=== PATIENT | female | born 2000 | race Hispanic/Latino ===

== ENCOUNTER 2019-01-10 13:43 | Day surgery (SDC) | payer OTHER ==
[2019-01-10 15:01] VITALS: BP 106/65; TEMP 99.1
[2019-01-10 15:02] VITALS: BMI 29.4
--- NOTE | 2019-01-10 15:21 | PDOC.FPROB ---
FMR OB H&P: HPI - History of Present Illness Chief Complaint: Contractions Indentification: History of Present Illness: Pt is a at 38 6/7 weeks, TC 01/18/19, dated by LMP c/w 9.4 week sono who presents with contractions q 4 mins. She states she started feeling contractions at 0200 spaced at 10 mins. Contractions did not remit becomeing q4mins. Painful contractions, 7/10. She denies ROM, bleeding. Her previous was 6 years ago and resulted in a vertical secondary to her age. She would prefer a . Pt is rubella non-immune, varicella non-immune, GBS negative. She has no other pertinent history. 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 - Surgical History Sx History: None - Social History Social History: Denies alcohol, tobacco, drugs - Family History Family History: non-contributory FMR OB H&P: Medications - Current Home Medications: Medication Instructions Recorded Confirmed Type Iron Fum,Ps/Folic/Bcomp,C No.9 1 cap PO DAILY 01/10/19 01/11/19 History [Folivane-Plus] Allergies/Adverse Reactions: Allergies Allergy/AdvReac Type Severity Reaction Status Date / Time No Known Drug Allergies Allergy Verified 01/11/19 00:39 FMR OB H&P: ROS - Review of Systems General: denies: fever/chills, weight/appetite/sleep changes Eyes: denies: eye pain, vision changes ENT: denies: nasal congestion, rhinorrhea Cardiovascular: denies: chest pain, palpitation, edema Respiratory: denies: cough, congestion, shortness of breath Gastrointestinal: denies: abdominal pain, indigestion Genitourinary (Female): denies: incontinence, dysuria, hematuria Musculoskeletal: denies: pain, stiffness Neurologic: denies: numbness, syncope Integumentary: denies: itching, rash FMR OB H&P: Vital Signs - Maternal Vital signs: Vital Signs - First Documented Temp Pulse Resp BP 99.1 F 73 18 106/65 01/10/19 14:16 01/10/19 14:16 01/10/19 14:16 01/10/19 14:16 - Heart Tones Baseline: 140 Variability: moderate Category: category 1 FMR OB H&P: Physical Exam - Physical Exam General: NAD, awake, alert and oriented Neck: supple, FROM, trachea midline Chest: non-tender to palpation Heart: RRR, normal S1/S2, no murmurs/rubs/gallops, no edema General: CTAB, no respiratory distress, good air movement, no wheezing Abdomen: soft, gravid, non-tender Musculoskeletal: pulses present Neurological: cranial nerves II through XII intact, sensation to pain,touch and proprioception grossly normal Skin: no rash, good tugor Lymphatic: no purpura, no petechia Psychiatric: good judgement and insight, normal mood and affect - Pelvic Exam SVE: %/-2 Membranes: Intact FMR OB H&P: A/P - Problem List (1) (vaginal after ) Status: Acute Code(s): O34.219 - MATERNAL CARE FOR UNSP TYPE SCAR FROM PREVIOUS DEL Disposition: Pt is a at 38.6 weeks dated by LMP c/w 9.4 week sono who presents with contractions q4mins # Latent Labor # Hx of Vertical Incision C/S /-2, contractions q4 mins, painful, membranes intact, Cat 1 strip - monitor progression for 2 hours checking for progression of labor. If pt does not progress and is still emiliano once every 10 mins or less will keep pt and observe due to pt's history c/s. If pt progresses will keep pt for labor. - encourage PO fluid intake. # GBS Negative Discussion: Date/Time: 01/10/19 374 This H&P was discussed with [] and [] who agree with the above documentation and plan. Addendum - Attending - Attending Attestation Date/Time: 01/11/19 4787 I personally evaluated the patient and discussed the management with Dr. Trujillo I agree with the History, Examination, Assessment and Plan documented above with any addition or exceptions noted below. In summary, patient is a 18 yo at 38.6 wk dated by LMP/9.4wk sono. She presented with CTx that had been progressively worsening and becoming more frequent since 0200 on the date of service. Her prior c/s occurred in [place] and was scheduled due to her age (12 yo) and concern for large per the patient. Her course has been unremarkable and she has had adequate follow up. Plan to PO and IV hydrate. Reassess for progression of labor. Plan discussed with patient and patient's spouse who expressed understanding.
[2019-01-10] MEDS ORDERED: Lactated Ringer's 1,000 ML IV SCH (17:00)
[2019-01-10] MEDS ORDERED: Butorphanol Tartrate 1 MG/ML VIAL SLOW IVP SCH (17:15)
--- NOTE | 2019-01-10 19:32 | PDOC.EVN ---
Event Note - Event Note Event Note: Pt's ctx decreased in frequency post IVF's. No change in cervix. Membranes still intact. Counseled pt on returning to L&D if frequency of ctx increase to less than Q10, are great in intensity/pain, is she has any vaginal bleeding, or loss of lfuids. Pt understands and agrees with the plan to return home until further along. ATTENDING ADDENDUM: Care discussed with Dr. Estevez and agree with plan and documentation. Patient again counseled on R/B/A of TOLAC. Vending Machine Repairer was used.
== END 2019-01-10 21:10 | disposition home or self-care (01) ==
LOC: L&D/OP 13:43
PROVIDERS: ATTEND Obstetrics & Gynecology
DX: O09.893 Supervision of other high risk pregnancies, third trimester (principal); O34.212 Maternal care for vertical scar from previous cesarean delivery; Z3A.38 38 weeks gestation of pregnancy

== ENCOUNTER 2019-01-10 23:50 | Inpatient (IN) | payer MEDICAID, OTHER, SELFPAY ==
[~2019-01-10 23:50] MED LIST: Bupivacaine HCl 0.25%/Epi 0.0005/PF 10 ML VIAL FS ONE
[2019-01-11] MEDS ORDERED: hydrALAZINE 20 MG/ML VIAL SLOW IVP PRN ×3 (00:23→09:23)
[2019-01-11] MEDS ORDERED: NS / Oxytocin 40 units/1000ml 1,000 ML IV PRN (00:23)
[2019-01-11] MEDS ORDERED: Lidocaine 1% (PF) 30 ML VIAL SC PRN (00:23)
--- NOTE | 2019-01-11 00:25 | PDOC.FPROB ---
FMR OB H&P: HPI - History of Present Illness Chief Complaint: contractions 4 min apart History of Present Illness: Pt is a at 39 weeks, TC 01/18/19, dated by LMP c/w 9.4 week sono who presents with contractions q 4 mins starting at 2100 01/10. 10/10 painful contractions. She denies LOF, vag bleeding, vag discharge. Feels movements. Pt came in yesterday afternoon and was sent home as her cervix did not show any change while being observed in L&D. She states she started feeling contractions at 0200 yesterday spaced at 10 mins. Contractions did not remit becomeing q4mins. Painful contractions, 7/10 at that time. Her previous was 6 years ago and resulted in a vertical secondary to her age. She would prefer a . Pt is rubella non-immune, varicella non-immune, GBS negative. She has no other pertinent history. Primary Care Physician: RONALDO uTbbs FMR OB H&P: Current - Care : 2 Para: 1 Gestational age: 39 Due date: 01/18/19 Dating Criteria: LMP confirmed with 9.4 wk sono - OB Labs Blood type: A RH: positive Antibody Screen: negative HIV: negative RPR: negative Rubella: non-immune GBS: negative FMR OB H&P: History - Past Medical History PMH: no known medical problems - OB History OB History: @ age 12, Vertical skin incision . 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 - Surgical History Sx History: c- section age 12 - Social History Social History: Denies alcohol, tobacco, drugs - Family History Family History: non-contributory FMR OB H&P: Medications - Current Home Medications: Medication Instructions Recorded Confirmed Type Iron Fum,Ps/Folic/Bcomp,C No.9 1 cap PO DAILY 01/10/19 01/11/19 History [Folivane-Plus] Allergies/Adverse Reactions: Allergies Allergy/AdvReac Type Severity Reaction Status Date / Time No Known Drug Allergies Allergy Verified 01/11/19 00:39 FMR OB H&P: ROS - Review of Systems General: denies: fever/chills, night sweats Eyes: denies: eye pain, vision changes ENT: denies: nasal congestion, rhinorrhea Cardiovascular: denies: chest pain, palpitation, edema Respiratory: denies: cough, congestion, shortness of breath Gastrointestinal: denies: abdominal pain, indigestion Genitourinary (Female): reports: contractions. denies: incontinence, vaginal pain, vaginal bleeding Musculoskeletal: denies: stiffness, tenderness, swelling Neurologic: denies: seizures, weakness Integumentary: denies: itching, rash Hematologic/Lymphatic: denies: prolonged or excessive bleeding Psychological: denies: depression, anxiety FMR OB H&P: Vital Signs - Maternal Vital signs: BP 110/72, HR 83, Temp 98.0, O2 sat 99% RA, RR 16 - Heart Tones Baseline: 140 Variability: moderate Acceleration: present Deceleration: absent Category: category 1 [place] contractions every: 3-4 min FMR OB H&P: Physical Exam - Physical Exam General: NAD, awake, alert and oriented HEENT: normocephalic and atraumatic, PERRLA, EOMI, MMM, conjunctiva clear, no scleral icterus, grossly normal vision, grossly normal hearing, oropharynx clear , good dention Neck: supple, FROM, trachea midline, no LAD, no JVD Chest: non-tender to palpation, no lesions Heart: RRR, normal S1/S2, no murmurs/rubs/gallops, pulses present, no edema General: CTAB, no respiratory distress, good air movement, no rales/rhonchi, no wheezing, no retractions Abdomen: soft, gravid, non-tender, bowel sound present, no masses, no hernias Musculoskeletal: normal gait and station, pulses present, FROM in all four extremities, no misalignment/asymmetry, no atrophy Neurological: cranial nerves II through XII intact, sensation to pain,touch and proprioception grossly normal, no clonus, no tremor, no focal deficit Skin: no rash, good tugor, capillary refill <2 seconds, no jaundice Lymphatic: no unusual bruising or bleeding, no purpura, no petechia, no LAD Psychiatric: intact recent and remote memory, good judgement and insight, normal mood and affect - Pelvic Exam SVE: /-1 Membranes: intact Presentation: cephalic FMR OB H&P: A/P - Problem List (1) Normal labor and delivery Current Visit: Yes Status: Acute Code(s): O80 - ENCOUNTER FOR FULL-TERM UNCOMPLICATED DELIVERY (2) (vaginal after ) Current Visit: No Status: Acute Code(s): O34.219 - MATERNAL CARE FOR UNSP TYPE SCAR FROM PREVIOUS DEL Discussion: Date/Time: 01/11/1926 18 y/o @ 39 weeks, dated by LMP confirmed with 9.4 wk sono, presents to L& D with contractions with increased frequency and intensity. 1. Term IUP - 39 weeks gestation - SVE 00:30, /-1 - Recheck in 4 hours - Pt wants epidural for pain management. Consulted Anesthesia - Continuous monitoring - FHT: 140 baseline, Cat 1 strip: mod variability, no decels, few acels. - Ctx Q3-4 min - GBS negative 2. TOLAC - Pt's first delivery was at age 12 via in [place] for "small pelvis and large size." - Monitor pt closely This H&P was discussed with Dr. Samson and Dr. Tubbs who agree with the above documentation and plan. Addendum - Attending - Attending Attestation Date/Time: 01/11/19919 I personally evaluated the patient and discussed the management with Dr. Vargas I agree with the History, Examination, Assessment and Plan documented above with any addition or exceptions noted below. Patient admitted after returning to hospital with noted cervical change. Desires . Augmentation as indicated. Reassess in 3-4 hours. Epidural for pain. Case proctored by Dr. Ata Burnett who was in agreement with the management of the patient unless otherwise stated in his documentation.
[2019-01-11] MEDS ORDERED: Promethazine HCl 25 MG/ML VIAL IM PRN ×2 (00:37→01:59)
[2019-01-11] MEDS ORDERED: Ondansetron PF 4 MG/2 ML Vial IVP PRN ×2 (00:37→01:59)
[2019-01-11 00:38] VITALS: BMI 26.5
[2019-01-11] MEDS: Lactated Ringer's 1,000 ML IV SCH ×3 (00:50→05:37)
[2019-01-11] MEDS ORDERED: Fentanyl 4 mcg/Bup 0.1% Cadd 100 ML ONE (00:50)
[2019-01-11 01:06] LABS: Hemoglobin 13.5 g/dL (12.0-16.0); Mean Corpuscular HGB CONC 34.1 g/dL (32.0-36.0); Mean Corpuscular Hemoglobin 26.3 pg (25.0-35.0); Mean Platelet Volume 8.8 fL (7.4-10.4); Platelet Count 254 thou/uL (130-400); RBC Distribution Width 19.3 % (11.5-14.5); Red Blood Cell (RBC) Count 5.13 mill/uL (4.00-5.20); White Blood Cell (WBC) Count 13.1 thou/uL (4.8-10.8)
[2019-01-11 01:45] LABS: HBSAg Index 0.34 S/CO (0-0.99); Hep B Surf Ag Non-Reactive S/CO (NonReactive)
[2019-01-11] MEDS ORDERED: ePHEDrine/0.9% NaCl/PF SYRINGE 50 mg/10 ml SLOW IVP PRN (01:59)
[2019-01-11] MEDS ORDERED: Naloxone HCl 0.4 mg/ml Vial IVP PRN ×2 (01:59)
[2019-01-11] MEDS ORDERED: diphenhydrAMINE 50 MG/ML VIAL IVP PRN (01:59)
[2019-01-11] MEDS ORDERED: Lactated Ringer's 500 ML IV PRN (01:59)
[2019-01-11] MEDS ORDERED: Acetaminophen 325 MG TAB PO PRN (01:59)
[2019-01-11] MEDS ORDERED: Communication Order-Pharmacy FS SCH (02:00)
[2019-01-11] MEDS ORDERED: Fentanyl 4 mcg/Bupivacaine 0.1% Cassette 100 ML EPIDURAL SCH (02:00)
--- NOTE | 2019-01-11 03:35 | PDOC.LDPN ---
Labor & Delivery Progress Note - Subjective Subjective: comfortable - Objective Vital signs reviewed and normal: yes General: NAD, resting, breathing through contractions Uterine fundus: non tender SVE: Dy Sam @ 03:30 Dilation: 4 Effacement: 90% Station: -1 FHT: category 1 (Baseline 130's, mod variability, acels present, no decels. ), variability present [place] contractions every: 3 min Other exam findings: Cystic mass present on urethra at 9 o'clock - Assessment (1) Normal labor and delivery Code(s): O80 - ENCOUNTER FOR FULL-TERM UNCOMPLICATED DELIVERY Current Visit: Yes Status: Acute (2) (vaginal after ) Code(s): O34.219 - MATERNAL CARE FOR UNSP TYPE SCAR FROM PREVIOUS DEL Current Visit: No Status: Acute Plan: continue plan of care -: 18 y/o @ 39 weeks, dated by LMP confirmed with 9.4 wk sono, presents to L& D with contractions with increased frequency and intensity. Admitted for Labor. 1. Term IUP - 39 weeks gestation - SVE 03:30, /-1 - Recheck in 4 hours - Epidural for pain management - Continuous monitoring - FHT: 130 baseline, Cat 1 strip: mod variability, no decels, acels present. - Ctx Q3 min - GBS negative - Urinary ram cath placed at 0330 2. TOLAC - Pt's first delivery was at age 12 via in [place] for "small pelvis and large size." - Monitor pt closely This H&P was discussed with Dr. Samson and Dr. Tubbs who agree with the above documentation and plan. Addendum - Attending - Attending Attestation Date/Time: 01/11/19 4149 I personally evaluated the patient and discussed the management with Dr. Vargas I agree with the History, Examination, Assessment and Plan documented above with any addition or exceptions noted below. I evaluated the patient at approximately 0400. patient was comfortable with epidural and resting through contractions. a few late decelerations were noted at this time and resolved with fluid bolus and maternal position change. Case proctored by Dr. Ata Burnett who was in agreement unless otherwise stated in his documentation.
[2019-01-11 04:30] LABS: Syphilis Antibody Nonreactive (Nonreactive)
--- NOTE | 2019-01-11 08:17 | PDOC.OPDEL ---
OB Operative/Delivery Note Delivery Dr/Surgeon: Arley Vargas Frakes and Lex attending. - Additional Findings/Plan Compilations/Other Findings: Delivery Note: This is 18 yo F @ 39wks who delivered a viable M at 0757 on 01/11, via . Following an uneventful antepartum course, a vigorous male was delivered over an intact perineum in the left occipitoanterior position. Anterior Shoulder and then remainder of the body delivered. No nuchal cord. The head was held down and mouth and nares were bulb suctioned. Cord clamped after delayed cord clamping, and cut and cord blood collected. Placenta delivered intact [place] presentation with a 3 vessel cord noted. Fundal massage was performed and the fundus was firm. The cervix was inspected and found to be free of lacerations. 1st degree laceration over the posterior vaginal mucosa, hemostasis was achieved and no need for repair. Infant went to nursery in good condition for routine care. Apgars were 6 /9 at 1 & 5 minutes, respectively. Patient tolerated delivery well and went to after routine recovery/care. Addendum - Attending - Attending Attestation Date/Time: 01/11/19 3527 I personally evaluated the patient and discussed the management with Dr. Vargas and was present for the delivery of the and placenta. I agree with the History, Examination, Assessment and Plan documented above with any addition or exceptions noted below. Successful with no complications at this time. One small hemostatic 1st degree perineal laceration noted that did not require repair. there were also bilateral upper vaginal sidewall/periuretheral abrasions both of which were hemostatic. QBL 80 mL. Patient to undergo routine care. Likely d/c tomorrow. Case was proctored by Dr. Ata Burnett who was in agreement with the documentation unless otherwise noted.
[2019-01-11] MEDS ORDERED: Adacel (T-DAP) 0.5 ML SYRINGE IM ONE (09:23)
[2019-01-11] MEDS ORDERED: NS / Oxytocin 40 units/1000ml 1,000 ML IV SCH (09:23)
[2019-01-11] MEDS ORDERED: [UNRECOGNIZED DRUG - OTHER] SC ONE (09:23)
[2019-01-11] MEDS ORDERED: Milk Of Magnesia 30 ML UDCUP PO PRN (09:23)
[2019-01-11] MEDS ORDERED: Preparation H Ointment 28 GM TUBE PR PRN (09:23)
[2019-01-11] MEDS ORDERED: Bisacodyl 10 MG SUPP PR PRN (09:23)
[2019-01-11] MEDS ORDERED: Benzocaine-Menthol 82.5 ML CAN TOP PRN (09:23)
[2019-01-11] MEDS ORDERED: Lanolin Ointment 7 GM TUBE TOP PRN (09:23)
[2019-01-11] MEDS ORDERED: diphenhydrAMINE 25 MG CAP PO PRN (09:23)
[2019-01-11] MEDS: Prenatal Vitamin 1 TAB PO SCH (12:09)
[2019-01-11] MEDS: Ferrous Sulfate 325 MG TAB PO SCH (18:24)
[2019-01-11] MEDS: Ibuprofen 800 MG TAB PO SCH ×2 (18:43→21:15)
[2019-01-11] MEDS: Docusate Calcium (SURFAK) 240 MG CAP PO SCH (21:15)
--- NOTE | 2019-01-12 03:19 | PDOC.OBPPN ---
FMR OB PN: Subj - Interval History Day: 1 18 y/o ->2 @ 39.0 WGA delivered via at 0757 on 01/11/19. Patient doing well. Has been ambulating to the bathroom. Voiding and passing flatus. Reports abdominal pain well controlled with ibuprofen and endorses minimal lochia. without difficulty. Tolerating PO. ROS: Denies fevers, chills, N/V, vision changes, headache, SOB, swelling. FMR OB PN: Obj - Maternal Vital signs: BP: 98/56 HR: 75 RR: 18 Tmax: 98.0 Pox: 98% on RA Wt: 68kg - Urine output I&O: 01/10/19 01/11/19 01/12/19 06:59 06:59 06:59 Intake Total 300 Output Total 266 Balance 34 FMR OB PN: Exam - Physical Exam General: NAD, awake, alert and oriented HEENT: EOMI, MMM, conjunctiva clear, no scleral icterus, grossly normal vision, grossly normal hearing Neck: supple, FROM Heart: RRR, normal S1/S2, no murmurs/rubs/gallops, pulses present, no edema General: CTAB, no respiratory distress, good air movement, no rales/rhonchi, no wheezing Abdomen: soft, fundus(cm) (firm 1cm below umbilicus), non-tender Musculoskeletal: normal gait and station, pulses present Neurological: no clonus, no focal deficit Skin: good tugor, capillary refill <2 seconds Lymphatic: no unusual bruising or bleeding, no purpura Psychiatric: intact recent and remote memory, good judgement and insight FMR OB PN: Data - Labs Lab results: Laboratory Results - last 24 hr 01/11/19 00:56 Syphilis IgG/IgM Ab Nonreactive FMR OB PN: A/P - Problem List (1) (vaginal after ) Current Visit: No Status: Acute Code(s): O34.219 - MATERNAL CARE FOR UNSP TYPE SCAR FROM PREVIOUS DEL Assessment and Plan: Continue routine care -Ibuprofen for pain control -Encouraged breast feeding -Continue PNV -Encourage ambulation (2) Rubella nonimmune status, delivered, current hospitalization Current Visit: Yes Status: Acute Code(s): O99.89 - OTH DISEASES AND CONDITIONS COMPL PREG/CHLDBRTH; Z28.3 - UNDERIMMUNIZATION STATUS Assessment and Plan: Will give MMR vaccine prior to d/c (3) Maternal varicella, non-immune Current Visit: Yes Status: Acute Code(s): O09.899 - SUPERVISION OF OTHER HIGH RISK PREGNANCIES, UNSP TRIMESTER; Z28.3 - UNDERIMMUNIZATION STATUS Assessment and Plan: Will give varicella vaccine prior to d/c Disposition: D/C home today pending bilirubin Discussion: Date/Time: 01/12/19 0315 This H&P was discussed with Dr. Samson who agrees with the above documentation and plan. Signature: Liz Tubbs MD, PGY-3 Addendum - Attending - Attending Attestation Date/Time: 01/12/19 1020 I personally evaluated the patient and discussed the management with Dr. Tubbs I agree with the History, Examination, Assessment and Plan documented above with any addition or exceptions noted below. PP day 1 from successful . Total QBL 340 mL. Pain controlled and patient desires to go home. will give MMR and varacella vaccine since non-immune prior to d/c. Hemoglobin dropped to 10.3. Will d/c on PO iron. Meeting with client support consultant prior to d/c. Home today. F/U PNC 2 wk.
[2019-01-12] MEDS: Ibuprofen 800 MG TAB PO SCH ×2 (06:04→13:46)
[2019-01-12 06:38] LABS: Hemoglobin 10.3 g/dL (12.0-16.0)
[2019-01-12 07:30] VITALS: BP 92/51; TEMP 97.9
[2019-01-12] MEDS: Prenatal Vitamin 1 TAB PO SCH (08:41)
[2019-01-12] MEDS: Docusate Calcium (SURFAK) 240 MG CAP PO SCH (08:42)
[2019-01-12] MEDS: Ferrous Sulfate 325 MG TAB PO SCH (08:43)
[2019-01-12] MEDS ORDERED: [UNRECOGNIZED DRUG - OTHER] SC ONE (09:00)
[2019-01-12] MEDS ORDERED: Measles/Mumps/Rubella 10 MCG/0.5 ML VIAL SC ONE (14:00)
--- NOTE | 2019-01-21 09:30 | PQF ---
[employer] Production Material Coordinator Crystal Reports Winform ViewerTirado Yomaira Díaz OSCAR ROCK MD [id number] CLINICAL DOCUMENTATION CLARIFICATION FORM: POST DISCHARGE Addendum to original discharge summary date: ____ Late entry note date: __ DATE: 01/21/2019 ATTN: OSCAR ROCK MD Please exercise your independent, professional judgment in responding to the clarification form. Clinical indicators are provided on the bottom of this form for your review Please check appropriate box(s): [ X ] Acute blood loss anemia [ ] Post-op anemia related to acute blood loss [ ] Anemia: [ ] Aplastic [ ] Nutritional [ ] Drug induced (specify) ___ [ ] Hemolytic [ ] Hereditary [ ] Acquired [ ] Autoimmune [ ] Non-autoimmune [ ] Enzyme disorder [ ] Chronic Anemia: [ ] Blood loss [ ] Hemolytic [ ] Simple [ ] Due to Vitamin B12 Deficiency [ ] Other [ ] Anemia of Chronic Disease (please specify) [ ] Post hemorrhagic anemia [ ] Other diagnosis [ ] Unable to determine In addition, please specify: Present on Admission (POA): [ ] Yes [ X ] No [ ] Unable to determine For continuity of documentation, please document condition throughout progress notes and discharge summary. Thank You. CLINICAL INDICATORS - SIGNS / SYMPTOMS / LABS - Pre OP: HGB 13.5, HCT:39.4 Laboratory, 01/11 - Post OP: 10.3L, HCT: 30.8L - Laboratory, 01/12 - QBL: 80ml-OP report, 01/11, Mitchell Samson MD - Weeks of gestation: 39 wks-OP report, 01/11, Mitchell Samson MD RISK FACTORS - -OP report, 01/11, Mitchell Samson MD - 1st degree perineal laceration-OP report, 01/11, Mitchell Samson MD TREATMENTS: - Folivane-Plus.PO- Home medications-01/10 - Ferrous sulfate.PO- transfer meds-01/11 [employer] Production Material Coordinator Crystal Reports Winform Viewer (This form is maintained as a part of the permanent medical record) 2014 [employer]. All Rights Reserved Samantha York [not provided] [not provided] MTDD
== END 2019-01-12 15:00 | disposition home or self-care (01) | DRG 806 ==
LOC: L&D/OP 23:50 → L&D 01-11 00:37 → 3SW 01-11 17:20
PROVIDERS: ADMIT Family Medicine; ATTEND Family Medicine
PROC: 10E0XZZ Delivery of Products of Conception, External Approach (ICD-10-PCS; principal; 2019-01-11)
PROC: 0HQ9XZZ Repair Perineum Skin, External Approach (ICD-10-PCS; 2019-01-11)
DX: O34.219 Maternal care for unspecified type scar from previous cesarean delivery (principal); D62 Acute posthemorrhagic anemia; Z37.0 Single live birth; O76 Abnormality in fetal heart rate and rhythm complicating labor and delivery; Z3A.39 39 weeks gestation of pregnancy; O99.62 Diseases of the digestive system complicating childbirth; O70.0 First degree perineal laceration during delivery; K21.9 Gastro-esophageal reflux disease without esophagitis; O90.89 Other complications of the puerperium, not elsewhere classified; O90.81 Anemia of the puerperium
CPT/HCPCS: 36415; 51702; 85014; 85018; 85027; 86780; 86850; 86900; 86901; 87340; 90707; 99285